=== PATIENT | female | born 1990 | race Caucasian/White ===

== ENCOUNTER 2018-02-03 19:25 | Emergency (ER) | payer OTHER ==
[~2018-02-03] VITALS: Ht 162.6 cm; Wt 58.6 kg
[~2018-02-03 19:25] MED LIST: NUVARING VAG RING
[2018-02-03 19:28] VITALS: TEMP 98.8
[2018-02-03 20:10] LABS: ALBUMIN 4.5 gm/dL (3.5-5.0); BILIRUBIN,TOTAL 0.3 mg/dL (0.0-1.0); CALCIUM 8.6 mg/dL (8.4-10.2); CREATININE, serum 0.78 mg/dL (0.52-1.25); POTASSIUM 3.9 mmol/L (3.4-5.0); TOTAL PROTEIN 8.3 gm/dL (6.4-8.2)
[2018-02-03 21:35] VITALS: BP 111/71; PULSE 70
== END 2018-02-03 21:35 | disposition home or self-care (01) ==
LOC: COL.ER 19:25
PROVIDERS: Emergency Medicine
DX: F10.129 Alcohol abuse with intoxication, unspecified (principal)
CPT/HCPCS: J2405; J7030